=== PATIENT | female | born 1995 | race Caucasian/White ===

== ENCOUNTER → 2025-06-02 12:51 | Outpatient (BNVA) | payer MEDICAID, SELFPAY | PROVIDERS: Visit Provider Nurse Practitioner Family | DX: L81.3 Cafe au lait spots (principal); D22.5 Melanocytic nevi of trunk; Z87.2 Personal history of diseases of the skin and subcutaneous tissue; D48.5 Neoplasm of uncertain behavior of skin | CPT/HCPCS: 11104; 99203 ==